=== PATIENT | female | born 1960 | race Caucasian/White ===

== ENCOUNTER 2018-01-27 06:20 | Day surgery (SDC) | payer BC ==
[2018-01-23 14:19] VITALS: BMI 27.6
[2018-01-27] MEDS ORDERED: BACITRACIN 3.5 GM OPTHALMIC OINT TUBE ONE (07:26)
[2018-01-27] MEDS ORDERED: OXYMETAZOLINE 0.05% NASAL SOLUTION 15 ML BOTTLE NS ONE ×2 (07:26→08:36)
[2018-01-27] MEDS ORDERED: THROMBIN (BOVINE) 5,000 UNIT VIAL TP ONE ×4 (07:26→09:53)
[2018-01-27] MEDS ORDERED: TETRACAINE 0.5% OPHTH SOLN 2 ML BOTTLE ONE (07:27)
[2018-01-27] MEDS ORDERED: BUPIVACAINE HCL/PF 0.5% (5MG/ML) 10 ML VIAL ONE (07:27)
[2018-01-27] MEDS ORDERED: POVIDONE-IODINE 5% OPHTHALMIC PREP 30 ML SOLUTION ONE ×2 (07:27→08:26)
[2018-01-27] MEDS ORDERED: LIDOCAINE 1%/EPI 1:100000 (20 ML MULTI DOSE VIAL) ONE ×2 (07:27→08:00)
[2018-01-27] MEDS ORDERED: ONDANSETRON 4 MG/2 ML VIAL IVPUSH PRN (07:31)
[2018-01-27] MEDS ORDERED: oxyCODONE HCL 5 MG TABLET PO PRN ×2 (07:31)
[2018-01-27] MEDS ORDERED: LACTATED RINGERS SOLUTION 1,000 ML IV SCH (07:45)
[2018-01-27] MEDS ORDERED: MIDAZOLAM HCL 2 MG/2 ML SINGLE DOSE VIAL ONE (07:59)
[2018-01-27] MEDS ORDERED: LIDOCAINE HCL 1%, 10 MG/ML (20ML VIAL) ONE (08:00)
[2018-01-27] MEDS ORDERED: PROPOFOL 20 ML ONE ×2 (08:07→08:26)
[2018-01-27] MEDS ORDERED: SUCCINYLCHOLINE CHLORIDE 200 MG/10 ML VIAL ONE (08:08)
[2018-01-27] MEDS ORDERED: LIDOCAINE 1%/EPI 1:100000 (20 ML MULTI DOSE VIAL) INF ONE (08:17)
[2018-01-27] MEDS ORDERED: BUPIVACAINE HCL/PF 0.5% (5MG/ML) 10 ML VIAL IJ ONE (08:17)
[2018-01-27] MEDS ORDERED: SODIUM CHLORIDE 0.9% P/F 10 ML VIAL IJ ONE (08:26)
[2018-01-27] MEDS ORDERED: LIDOCAINE HCL/PF 2% SDV 5ML VIAL ONE (08:26)
[2018-01-27] MEDS ORDERED: ceFAZolin SODIUM 1 GM VIAL ONE (08:26)
[2018-01-27] MEDS ORDERED: DEXAMETHASONE SOD PHOSPHATE 4 MG/1 ML VIAL ONE (08:29)
[2018-01-27] MEDS ORDERED: BACITRACIN 50,000 UNITS VIAL TP ONE (08:35)
[2018-01-27] MEDS ORDERED: BACITRACIN 3.5 GM OPTHALMIC OINT TUBE OS ONE ×3 (08:36→09:59)
[2018-01-27] MEDS ORDERED: METOPROLOL TARTRATE 5 MG/5 ML VIAL ONE (08:49)
[2018-01-27] MEDS ORDERED: GELATIN, ABSORBABLE 100 EACH SPONGE TP ONE ×2 (08:58→09:05)
[2018-01-27] MEDS ORDERED: hydrALAZINE HCL 20 MG/ML VIAL ONE (09:21)
[2018-01-27] MEDS ORDERED: PROMETHAZINE HCL 25 MG/1 ML VIAL IVPB PRN (10:36)
[2018-01-27] MEDS ORDERED: PROMETHAZINE HCL 25 MG/1 ML VIAL IVPUSH ONE (11:30)
--- NOTE | 2018-01-27 13:10 | OP ---
DATE OF OPERATION: 01/27/2018 PREOPERATIVE DIAGNOSIS: Nasolacrimal obstruction with epiphora, left eye. POSTOPERATIVE DIAGNOSIS: Nasolacrimal obstruction with epiphora, left eye. PROCEDURE: 1. External dacryocystorhinostomy. 2. Silicone intubation, left lacrimal system. 3. Lacrimal sac biopsy. SURGEON: Ira Cohn MD ANESTHESIA: LMA. COMPLICATONS: Excess bleeding, more than what we would normally see in a typical DCR. ESTIMATED BLOOD LOSS: Probably 50 to 100 mL. OPERATION REPORT: Patient was brought to the operating room and placed on the operating room table. Vital signs were monitored by Anesthesia. She was placed under LMA anesthesia. A line was marked in the tear trough on the left side extending to the medial canthal tendon. Then, after a time-out was performed, a 50/50 mixture of 2% Xylocaine with 1:100,000 epinephrine and 0.25% Marcaine was injected in the incision that was marked in the tear trough, the nasal third of the upper and lower lid, lateral wall of the nose, anterior lacrimal crest, dorsal nasal artery, and anterior infraorbital artery, hopefully for hemostasis. The patient was prepped and draped in the usual fashion of both eyes. The right eye was taped closed with Steri-Strips. She was prepped under the nose as well and the left nostril was packed with cottonoids moistened with Afrin. After injection of 2% Xylocaine 1:100,000, epinephrine was given in the middle turbinate, middle meatus and external naris. The following procedure was performed. An incision was made in the tear trough. This was carried down through the skin and subcutaneous tissue. The muscle was gently spread apart with a Skaggs scissors en route to the anterior lacrimal crest. The anterior lacrimal crest was identified. Unfortunately, there was a fair amount of bleeding and perhaps the angular artery had somehow been traumatized. Therefore, cautery was used for hemostasis. However, throughout the case, all tissue that was manipulated seemed to bleed excessively, more so than would be expected, and required cautery and packing. Once the anterior lamella was identified, the anterior portion of the medial canthal tendon was partially incised. The periosteum was reflected laterally and reflected off of the intact lacrimal sac fossa, which was penetrated posteriorly with a hemostat. Then, upbiting Kerrison rongeurs were used to create a osteotomy from the nasolacrimal duct to the medial canthal tendon, inclusive of the anterior lacrimal crest. The nasal mucosa was removed. Some ethmoid air cells were removed as well, but minimally so, and the packing from the nose was visualized. Gelfoam soaked with thrombin and packing was used again to try to promote hemostasis. The upper and lower puncta were dilated. The sac was intubated with Fan probes. The medial wall of the sac was tented medially and incised with a 12-blade and posterior and anterior lacrimal sac flaps were created. It should be noted that the sac itself was quite scarred and shrunken and had irregular contours. It did not have the normal mucosal kind of tear. Therefore, the sac was biopsied, as were sac contents, and submitted for pathologic study fresh to rule out lymphoma or sarcoid. It was an unusually scarified sac and thickened wall. The upper and lower puncta were now intubated with Perez probes. It was retrieved the left external naris with the Perez hook with a good opening into the nose. The silicone moved freely in this newly created internal fistula. The anterior lacrimal sac flap was sutured to the periosteum anterior to the osteotomy with mattress and interrupted 4-0 chromic sutures. The subcuticular tissues were closed with 6-0 chromic, and the skin was closed with interrupted and running 6-0 plain suture with plastic technique. The stents were removed from the probes and tied with locking knots. At this point, the packing was removed from the nose and there was bleeding from the nose and bleeding from the lower end of the left septum. Therefore, a small amount of 1/4-inch packing was placed in the nose as well after the silicone stents were tied to the left external naris with a single 6-0 Prolene suture. Bacitracin ointment was placed on the sutures. Minimal tension remained on the loop of the left medial canthus and the patient was taken to the recovery room. Afrin was sprayed in the nose as well prior to packing. She was in stable condition after she was awakened from anesthesia. IRA COHN M.D. [id number]
[2018-01-27 15:35] VITALS: BP 114/65; PULSE 80; TEMP 97.9
--- NOTE | 2018-01-29 16:53 | PATH ---
Surgical Pathology Report Patient Name: NINA DELGADILLO Med. Rec. #: [id number] /Age/Gender: 1960 (Age: 57) / F Account: [id number] Location: [facility] AMBULATORY Taken: 01/27/2018 Received: 01/27/2018 Reported: 01/29/2018 Physicians: Jd Cohn Specimen(s) Received A: NASAL BONE B: LEFT LACRIMAL SAC Clinical History Blocked tear duct left eye Final Diagnosis A. NASAL BONE, EXCISION: UNREMARKABLE BONE. B. LEFT LACRIMAL SAC, PARTIAL EXCISION: FIBROVASCULAR TISSUE WITH FOCAL BENIGN EPITHELIAL LINING, WITH SCANT LYMPHOCYTES. NO MALIGNANT FEATURES ARE IDENTIFIED. Comment: Flow cytometry performed and interpreted at [facility], [place], [place] ([id number]) shows the following: INTERPRETATION: Limited sample with decreased viability, with no evidence of B or T-cell proliferative disorders. See [facility] report for additional details. Electronically Signed Cas Crowley M.D. Gross Description A. Received in formalin labelled "nasal bone" is a 0.5 cm greatest dimension aggregate of bony tissue fragments. Totally submitted in one cassette for decalcification. B. Received fresh in RPMI labeled "left lacrimal sac" is an approximately 0.5 cm greatest dimension portion of herron tissue. A portion is submitted in one cassette for permanent section. All of the remaining tissue is submitted for flow cytometry. [facility]/01/28/2018 [facility]/01/28/2018
== END 2018-01-27 14:40 | disposition home or self-care (01) ==
LOC: FASU 06:20
PROVIDERS: ATTEND Ophthalmology
PROC: 08B Eye, Excision (ICD-10-PCS; 2018-01-27)
PROC: 087 Eye, Dilation (ICD-10-PCS; 2018-01-27)
PROC: 081Y0Z3 Bypass Left Lacrimal Duct to Nasal Cavity, Open Approach (ICD-10-PCS; principal; 2018-01-27 08:34)
DX: H04.552 Acquired stenosis of left nasolacrimal duct (principal); H04.202 Unspecified epiphora, left side
CPT/HCPCS: 88304-TC; 88311-TC; 94760